=== PATIENT | female | born 1945 | race Caucasian/White ===

== ENCOUNTER 2017-01-18 06:35 | Inpatient (IN) ==
[2017-01-18] MEDS ORDERED: FUROSEMIDE 100 MG/10 ML VIAL IV STA (07:00)
[2017-01-18 07:16] LABS: Basophils # 0.1 10*3/uL (0.0-0.2); Basophils % 0.4 % (0.0-0.8); Eosinophils # 0.2 10*3/uL (0.0-0.87); Eosinophils % 1.3 % (0.00-10.9); Hematocrit 33.6 VOL% (35.7-47.0); Hemoglobin 11.2 GM/DL (12.0-16.0); Immature Granulocytes % 0.7 %; Immature Granulocytes Absolute 0.09 #; Lymphocytes # 1.6 10*3/uL (1.4-4.0); Lymphocytes % 12.2 % (21.3-54.2); Mean Corpuscular HGB Conc 33.3 GM/DL (32-36); Mean Corpuscular Hemoglobin 30 PG (27-34); Mean Corpuscular Volume 88.9 FL (87-102); Mean Platelet Volume 9.8 FL (9.6-12.0); Monocytes # 0.8 10*3/uL (0.11-0.8); Monocytes % 5.8 % (1.7-12.7); Neutrophils # 10.6 10*3/uL (1.4-7.4); Neutrophils % 79.6 % (38.7-73.9); Platelet Count 455 T/CUMM (130-400); Red Blood Count 3.78 MC/CUMM (3.8-5.5); Red Cell Distribution Width 14.8 % (9.3-17.3); White Blood Count 13.3 T/CUMM (4-12)
[2017-01-18] MEDS ORDERED: FUROSEMIDE 100 MG/10 ML VIAL ONE (07:43)
[2017-01-18 07:50] LABS: Amorphous Crystals,Urine Few /HPF (Few); Apearance,Urine CLOUDY (Clear); Bilirubin,Urine Negative (Negative); Blood, Urine Small mg/dL (Negative); Glucose,Urine (UA) Negative (Negative); Ketones,Urine 5 mg/dL (Negative); Mucus,Urine Occasional /LPF (Occasional); Nitrite,Urine Negative (Negative); Protein,Urine 30 MG/DL; Urine Color Yellow (Yellow); Urine Specific Gravity 1.025 (1.001-1.035)
[2017-01-18 07:53] LABS: Alanine Aminotransferase 29 U/L (13-56); Albumin 2.8 G/DL (3.4-5.0); Alkaline Phosphatase 157 U/L (45-117); Aspartate Amino Transferase 16 U/L (0-37); Blood Urea Nitrogen 16 MG/DL (7-18); Calcium 9.5 MG/DL (8.5-10.1); Glucose 114 MG/DL (74-106); Potassium 2.6 MMOL/L (3.5-5.1); Sodium 143 MMOL/L (136-145); Total Protein 7.1 G/DL (6.4-8.3); Troponin I Only < 0.015 NG/ML (0.00-0.045)
[2017-01-18] MEDS ORDERED: ENOXAPARIN 80 MG/0.8 ML SYRINGE SUBCUT STA (07:56)
[2017-01-18] MEDS ORDERED: POTASSIUM CHLORIDE 20 MEQ TABLET PO STA (08:04)
[2017-01-18] MEDS ORDERED: POTASSIUM CHLORIDE 20 MEQ TABLET PO ONE (08:25)
[2017-01-18] MEDS ORDERED: ENOXAPARIN 80 MG/0.8 ML SYRINGE SUBCUT ONE (08:26)
[2017-01-18] MEDS ORDERED: LACTULOSE 20 GM/30 ML UDCUP PO PRN (09:27)
[2017-01-18] MEDS ORDERED: MORPHINE 2 MG/1 ML SYRINGE IV PRN (09:27)
[2017-01-18] MEDS ORDERED: DOCUSATE SODIUM 100 MG CAPSULE PO PRN (09:27)
[2017-01-18] MEDS ORDERED: ONDANSETRON 4 MG/2 ML VIAL IV PRN (09:27)
[2017-01-18] MEDS ORDERED: ALBUTEROL/IPRATROPIUM 3 ML NEB RESP TX PRN (09:35)
[2017-01-18] MEDS ORDERED: ONDANSETRON 4 MG/2 ML VIAL ONE (10:20)
[2017-01-18] MEDS ORDERED: MORPHINE 2 MG/1 ML SYRINGE ONE (10:20)
[2017-01-18] MEDS ORDERED: METHOCARBAMOL 500 MG TABLET PO PRN (11:48)
[2017-01-18] MEDS ORDERED: LIDOCAINE 5% PATCH TRANSDERM PRN (11:48)
[2017-01-18] MEDS: POTASSIUM CHLORIDE 20 MEQ TABLET PO SCH ×2 (13:17→14:45)
[2017-01-18] MEDS: MULTIVITAMIN (CENTRUM) TABLET PO SCH (13:17)
[2017-01-18] MEDS: LEVOFLOXACIN INJ 750 MG in PREMIX 1 EACH IV SCH (13:18)
[2017-01-18] MEDS: PANTOPRAZOLE 40 MG TABLET PO SCH (13:18)
[2017-01-18] MEDS ORDERED: APIXABAN 5 MG TABLET PO SCH (20:00)
[2017-01-18] MEDS ORDERED: FUROSEMIDE 40 MG/4 ML VIAL IV SCH (21:00)
[2017-01-18] MEDS: APIXABAN 5 MG TABLET PO SCH ×2 (21:53→21:54)
[2017-01-18] MEDS: CALCIUM (CARBONATE) 500 MG TABLET PO SCH (21:53)
[2017-01-19 04:28] LABS: Basophils # 0.1 10*3/uL (0.0-0.2); Basophils % 0.6 % (0.0-0.8); Eosinophils # 0.1 10*3/uL (0.0-0.87); Eosinophils % 1.5 % (0.00-10.9); Hematocrit 26.8 VOL% (35.7-47.0); Immature Granulocytes % 0.6 %; Immature Granulocytes Absolute 0.05 #; Lymphocytes # 1.4 10*3/uL (1.4-4.0); Lymphocytes % 16.4 % (21.3-54.2); Mean Corpuscular HGB Conc 32.8 GM/DL (32-36); Mean Corpuscular Hemoglobin 30 PG (27-34); Mean Corpuscular Volume 90.5 FL (87-102); Mean Platelet Volume 9.8 FL (9.6-12.0); Monocytes # 0.7 10*3/uL (0.11-0.8); Monocytes % 7.9 % (1.7-12.7); Neutrophils # 6.4 10*3/uL (1.4-7.4); Red Cell Distribution Width 14.8 % (9.3-17.3)
[2017-01-19 05:04] LABS: Calcium 8.4 MG/DL (8.5-10.1); Osmolality,Calculated 284.8 MOS/KG (273-304); Potassium 4.4 MMOL/L (3.5-5.1)
[2017-01-19 05:10] LABS: White Blood Count 8.8 T/CUMM (4-12)
[2017-01-19 05:11] LABS: Hemoglobin 8.8 GM/DL (12.0-16.0); Platelet Count 350 T/CUMM (130-400); Red Blood Count 2.96 MC/CUMM (3.8-5.5)
[2017-01-19] MEDS ORDERED: POTASSIUM CHLORIDE 20 MEQ TABLET PO SCH (09:00)
[2017-01-19] MEDS ORDERED: FUROSEMIDE 40 MG/4 ML VIAL IV SCH (09:00)
[2017-01-19] MEDS ORDERED: DIAZEPAM 5 MG TABLET PO ONE (09:13)
[2017-01-19] MEDS: LEVOFLOXACIN INJ 750 MG in PREMIX 1 EACH IV SCH (09:19)
[2017-01-19] MEDS: PANTOPRAZOLE 40 MG TABLET PO SCH (09:40)
[2017-01-19] MEDS: CALCIUM (CARBONATE) 500 MG TABLET PO SCH (09:40)
[2017-01-19] MEDS: APIXABAN 5 MG TABLET PO SCH (09:40)
[2017-01-19] MEDS: MULTIVITAMIN (CENTRUM) TABLET PO SCH (09:40)
[2017-01-19 11:51] VITALS: BP 153/77
[2017-01-19] MEDS ORDERED: ZINC OXIDE PASTE 113 GM TUBE TOP PRN (15:30)
[2017-01-24] MEDS ORDERED: ERGOCALCIFEROL 50,000 UNIT CAPSULE PO SCH (09:00)
== END 2017-01-19 16:00 | disposition home health service (06) | DRG 253 ==
LOC: N.ED 06:35 → N.EDINP 09:49 → N.3E 10:32
PROVIDERS: ADMIT Internal Medicine; ATTEND Internal Medicine

== ENCOUNTER 2018-01-04 08:11 | Observation (INO) ==
[2018-01-04] MEDS ORDERED: ASPIRIN 325 MG TABLET PO STA (08:38)
[2018-01-04 08:45] LABS: Basophils # 0.1 10*3/uL (0.0-0.2); Basophils % 0.7 % (0.0-0.8); Eosinophils # 0.1 10*3/uL (0.0-0.87); Eosinophils % 1.5 % (0.00-10.9); Hematocrit 37.1 VOL% (35.7-47.0); Hemoglobin 12.3 GM/DL (12.0-16.0); Immature Granulocytes % 0.2 %; Immature Granulocytes Absolute 0.02 #; Lymphocytes # 1.8 10*3/uL (1.4-4.0); Mean Corpuscular HGB Conc 33.2 GM/DL (32-36); Mean Corpuscular Hemoglobin 30 PG (27-34); Mean Corpuscular Volume 91.4 FL (87-102); Mean Platelet Volume 11.5 FL (9.6-12.0); Monocytes # 0.5 10*3/uL (0.11-0.8); Monocytes % 5.5 % (1.7-12.7); Neutrophils # 5.7 10*3/uL (1.4-7.4); Neutrophils % 70.1 % (38.7-73.9); Platelet Count 309 T/CUMM (130-400); Red Blood Count 4.06 MC/CUMM (3.8-5.5); Red Cell Distribution Width 14.5 % (9.3-17.3); White Blood Count 8.2 T/CUMM (4-12)
[2018-01-04 09:32] LABS: Bilirubin,Total 0.8 MG/DL (0.2-1.0); Calcium 9.5 MG/DL (8.5-10.1); Osmolality,Calculated 286.1 MOS/KG (273-304); Potassium 3.7 MMOL/L (3.5-5.1); Total Protein 7.4 G/DL (6.4-8.3)
[2018-01-04] MEDS ORDERED: ONDANSETRON 4 MG/2 ML VIAL IV PRN (11:01)
[2018-01-04] MEDS ORDERED: ACETAMINOPHEN 325 MG TABLET PO PRN (11:01)
[2018-01-04 13:06] LABS: Apearance,Urine CLEAR (Clear); Bilirubin,Urine Negative (Negative); Blood, Urine Negative (Negative); Glucose,Urine (UA) Negative (Negative); Ketones,Urine Negative (Negative); Nitrite,Urine Negative (Negative); Protein,Urine Negative; RBC,Urine <1 /HPF (0-4); Urine Color Colorless (Yellow); Urine Specific Gravity 1.005 (1.001-1.035); Urine Urobilinogen < 2.0 EU/DL (0.2-1.0); WBC,Urine <1 /HPF (0-6)
[2018-01-04] MEDS: CHOLECALCIFEROL 1,000 UNIT TABLET PO SCH (14:44)
[2018-01-04] MEDS: CARBIDOPA/LEVODOPA 25-100 MG TABLET PO SCH (16:28)
[2018-01-04] MEDS ORDERED: OXYMETAZOLINE 0.05% NASAL SPRAY 15 ML BOTTLE BOTH NARES PRN (16:33)
[2018-01-04] MEDS ORDERED: APIXABAN 5 MG TABLET PO SCH (21:00)
[2018-01-04] MEDS: POTASSIUM CHLORIDE 10 MEQ TABLET PO SCH (21:07)
[2018-01-04] MEDS: CARVEDILOL 3.125 MG TABLET PO SCH (21:07)
[2018-01-04] MEDS: DOCUSATE SODIUM 100 MG CAPSULE PO SCH (21:07)
[2018-01-05] MEDS: CHOLECALCIFEROL 1,000 UNIT TABLET PO SCH (10:04)
[2018-01-05] MEDS: PANTOPRAZOLE 40 MG TABLET PO SCH (10:04)
[2018-01-05] MEDS: CARVEDILOL 3.125 MG TABLET PO SCH ×2 (10:05→20:39)
[2018-01-05] MEDS: FUROSEMIDE 40 MG TABLET PO SCH (10:05)
[2018-01-05] MEDS: DOCUSATE SODIUM 100 MG CAPSULE PO SCH ×2 (10:05→20:39)
[2018-01-05] MEDS: POTASSIUM CHLORIDE 10 MEQ TABLET PO SCH ×2 (10:05→20:39)
[2018-01-05] MEDS: CYANOCOBALAMIN 500 MCG TABLET PO SCH (10:05)
[2018-01-05] MEDS: CARBIDOPA/LEVODOPA 25-100 MG TABLET PO SCH ×3 (10:05→17:06)
[2018-01-05] MEDS ORDERED: ZINC OXIDE PASTE 113 GM TUBE TOP PRN (14:41)
[2018-01-05] MEDS ORDERED: BISACODYL 10 MG SUPP RECTAL ONE (18:37)
[2018-01-06] MEDS ORDERED: LIDOCAINE 100 MG/5 ML SYRINGE ONE (12:43)
[2018-01-06] MEDS ORDERED: PROPOFOL 200 MG/20 ML VIAL IV ONE (12:43)
[2018-01-06] MEDS: CARBIDOPA/LEVODOPA 25-100 MG TABLET PO SCH ×3 (14:30→16:11)
[2018-01-06] MEDS: CHOLECALCIFEROL 1,000 UNIT TABLET PO SCH (14:30)
[2018-01-06] MEDS: ISOSORBIDE MONONITRATE 30 MG TABLET PO SCH (14:30)
[2018-01-06] MEDS: CYANOCOBALAMIN 500 MCG TABLET PO SCH (14:31)
[2018-01-06] MEDS: POTASSIUM CHLORIDE 10 MEQ TABLET PO SCH ×2 (14:31→20:36)
[2018-01-06] MEDS: PANTOPRAZOLE 40 MG TABLET PO SCH (14:31)
[2018-01-06] MEDS: FUROSEMIDE 40 MG TABLET PO SCH (14:31)
[2018-01-06] MEDS: DOCUSATE SODIUM 100 MG CAPSULE PO SCH ×2 (14:32→20:36)
[2018-01-06] MEDS: CARVEDILOL 3.125 MG TABLET PO SCH ×2 (14:32→20:36)
[2018-01-07 05:37] LABS: Basophils % 0.6 % (0.0-0.8); Eosinophils # 0.3 10*3/uL (0.0-0.87); Eosinophils % 4.7 % (0.00-10.9); Hematocrit 32.3 VOL% (35.7-47.0); Hemoglobin 10.3 GM/DL (12.0-16.0); Immature Granulocytes % 1.2 %; Immature Granulocytes Absolute 0.08 #; Lymphocytes # 1.6 10*3/uL (1.4-4.0); Lymphocytes % 23.5 % (21.3-54.2); Mean Corpuscular HGB Conc 31.9 GM/DL (32-36); Mean Corpuscular Hemoglobin 30 PG (27-34); Mean Corpuscular Volume 93.1 FL (87-102); Mean Platelet Volume 11.7 FL (9.6-12.0); Monocytes # 0.6 10*3/uL (0.11-0.8); Monocytes % 8.3 % (1.7-12.7); Neutrophils # 4.2 10*3/uL (1.4-7.4); Neutrophils % 61.7 % (38.7-73.9); Platelet Count 228 T/CUMM (130-400); Red Blood Count 3.47 MC/CUMM (3.8-5.5); Red Cell Distribution Width 14.7 % (9.3-17.3); White Blood Count 6.9 T/CUMM (4-12)
[2018-01-07 05:52] LABS: Calcium 8.7 MG/DL (8.5-10.1); Osmolality,Calculated 284.1 MOS/KG (273-304); Potassium 4.2 MMOL/L (3.5-5.1)
[2018-01-07] MEDS: POTASSIUM CHLORIDE 10 MEQ TABLET PO SCH ×2 (09:13→20:55)
[2018-01-07] MEDS: FUROSEMIDE 40 MG TABLET PO SCH (09:13)
[2018-01-07] MEDS: CYANOCOBALAMIN 500 MCG TABLET PO SCH (09:13)
[2018-01-07] MEDS: PANTOPRAZOLE 40 MG TABLET PO SCH (09:13)
[2018-01-07] MEDS: CARBIDOPA/LEVODOPA 25-100 MG TABLET PO SCH ×3 (09:13→16:52)
[2018-01-07] MEDS: CHOLECALCIFEROL 1,000 UNIT TABLET PO SCH (09:13)
[2018-01-07] MEDS: DOCUSATE SODIUM 100 MG CAPSULE PO SCH ×2 (09:14→20:55)
[2018-01-07] MEDS: CARVEDILOL 3.125 MG TABLET PO SCH ×2 (09:14→20:55)
[2018-01-07] MEDS: ISOSORBIDE MONONITRATE 30 MG TABLET PO SCH (09:14)
[2018-01-08 06:34] LABS: Basophils # 0.1 10*3/uL (0.0-0.2); Basophils % 0.7 % (0.0-0.8); Eosinophils # 0.3 10*3/uL (0.0-0.87); Eosinophils % 3.8 % (0.00-10.9); Hematocrit 31.5 VOL% (35.7-47.0); Hemoglobin 10.1 GM/DL (12.0-16.0); Immature Granulocytes % 0.4 %; Immature Granulocytes Absolute 0.03 #; Lymphocytes # 1.3 10*3/uL (1.4-4.0); Lymphocytes % 18.3 % (21.3-54.2); Mean Corpuscular HGB Conc 32.1 GM/DL (32-36); Mean Corpuscular Hemoglobin 30 PG (27-34); Mean Corpuscular Volume 93.8 FL (87-102); Mean Platelet Volume 11.6 FL (9.6-12.0); Monocytes # 0.5 10*3/uL (0.11-0.8); Monocytes % 6.8 % (1.7-12.7); Neutrophils # 4.9 10*3/uL (1.4-7.4); Platelet Count 231 T/CUMM (130-400); Red Blood Count 3.36 MC/CUMM (3.8-5.5); Red Cell Distribution Width 14.9 % (9.3-17.3)
[2018-01-08 07:00] LABS: Calcium 7.6 MG/DL (8.5-10.1); Osmolality,Calculated 292.7 MOS/KG (273-304); Potassium 4.1 MMOL/L (3.5-5.1)
[2018-01-08] MEDS: DOCUSATE SODIUM 100 MG CAPSULE PO SCH ×2 (08:50→20:53)
[2018-01-08] MEDS: CYANOCOBALAMIN 500 MCG TABLET PO SCH (08:51)
[2018-01-08] MEDS: PANTOPRAZOLE 40 MG TABLET PO SCH (08:51)
[2018-01-08] MEDS: ISOSORBIDE MONONITRATE 30 MG TABLET PO SCH (08:51)
[2018-01-08] MEDS: POTASSIUM CHLORIDE 10 MEQ TABLET PO SCH ×2 (08:51→20:53)
[2018-01-08] MEDS: FUROSEMIDE 40 MG TABLET PO SCH (08:51)
[2018-01-08] MEDS: CHOLECALCIFEROL 1,000 UNIT TABLET PO SCH (08:51)
[2018-01-08] MEDS: CARVEDILOL 3.125 MG TABLET PO SCH ×2 (08:52→20:53)
[2018-01-08] MEDS: CARBIDOPA/LEVODOPA 25-100 MG TABLET PO SCH ×3 (08:52→18:48)
[2018-01-09 06:01] LABS: Calcium 8.9 MG/DL (8.5-10.1); Osmolality,Calculated 283.4 MOS/KG (273-304); Potassium 4.1 MMOL/L (3.5-5.1)
[2018-01-09 06:22] LABS: Basophils % 0.4 % (0.0-0.8); Eosinophils # 0.2 10*3/uL (0.0-0.87); Eosinophils % 3.4 % (0.00-10.9); Hematocrit 32.8 VOL% (35.7-47.0); Hemoglobin 10.6 GM/DL (12.0-16.0); Immature Granulocytes % 0.4 %; Immature Granulocytes Absolute 0.03 #; Lymphocytes # 1.5 10*3/uL (1.4-4.0); Lymphocytes % 21.9 % (21.3-54.2); Mean Corpuscular HGB Conc 32.3 GM/DL (32-36); Mean Corpuscular Hemoglobin 31 PG (27-34); Mean Corpuscular Volume 94.3 FL (87-102); Mean Platelet Volume 11.7 FL (9.6-12.0); Monocytes # 0.6 10*3/uL (0.11-0.8); Monocytes % 8.1 % (1.7-12.7); Neutrophils # 4.6 10*3/uL (1.4-7.4); Neutrophils % 65.8 % (38.7-73.9); Platelet Count 229 T/CUMM (130-400); Red Blood Count 3.48 MC/CUMM (3.8-5.5); Red Cell Distribution Width 14.7 % (9.3-17.3)
[2018-01-09] MEDS: POTASSIUM CHLORIDE 10 MEQ TABLET PO SCH (09:34)
[2018-01-09] MEDS: FUROSEMIDE 40 MG TABLET PO SCH (09:34)
[2018-01-09] MEDS: PANTOPRAZOLE 40 MG TABLET PO SCH (09:34)
[2018-01-09] MEDS: ISOSORBIDE MONONITRATE 30 MG TABLET PO SCH (09:34)
[2018-01-09] MEDS: CYANOCOBALAMIN 500 MCG TABLET PO SCH (09:34)
[2018-01-09] MEDS: CHOLECALCIFEROL 1,000 UNIT TABLET PO SCH (09:34)
[2018-01-09] MEDS: CARVEDILOL 3.125 MG TABLET PO SCH (09:35)
[2018-01-09] MEDS: CARBIDOPA/LEVODOPA 25-100 MG TABLET PO SCH ×2 (09:35→14:42)
[2018-01-09] MEDS: DOCUSATE SODIUM 100 MG CAPSULE PO SCH (09:35)
[2018-01-09 12:34] VITALS: BP 94/64
[2018-01-09] MEDS ORDERED: PNEUMOCOCCAL VACCINE (13 VALENT) 0.5 ML SYRINGE IM ONE (15:00)
== END 2018-01-09 15:23 | disposition home health service (06) ==
LOC: EDBD → EDUNIT# → N.ED 08:11 → N.EDINP 08:11 → N.2W 12:16 → N.TELEN 12:53
PROVIDERS: ADMIT Family Medicine; ATTEND Family Medicine

== ENCOUNTER 2018-01-15 17:05 | Observation (INO) ==
[2018-01-15] MEDS ORDERED: ALUM/MAG/SIMETH/LIDO VISC 1:1 30 ML BOTTLE PO STA (17:55)
[2018-01-15] MEDS ORDERED: NITROGLYCERIN 2% OINT 1 INCH/GM PACK TOP STA (17:55)
[2018-01-15] MEDS ORDERED: ASPIRIN 325 MG TABLET PO STA (17:55)
[2018-01-15] MEDS ORDERED: ONDANSETRON 4 MG/2 ML VIAL IV STA (17:55)
[2018-01-15] MEDS ORDERED: MORPHINE 4 MG/1 ML VIAL IV STA (17:55)
[2018-01-15 18:34] LABS: Basophils # 0.1 10*3/uL (0.0-0.2); Basophils % 0.9 % (0.0-0.8); Eosinophils # 0.2 10*3/uL (0.0-0.87); Eosinophils % 3.6 % (0.00-10.9); Hematocrit 36.7 VOL% (35.7-47.0); Hemoglobin 11.7 GM/DL (12.0-16.0); Immature Granulocytes % 0.3 %; Immature Granulocytes Absolute 0.02 #; Lymphocytes # 1.8 10*3/uL (1.4-4.0); Lymphocytes % 26.7 % (21.3-54.2); Mean Corpuscular HGB Conc 31.9 GM/DL (32-36); Mean Corpuscular Hemoglobin 29 PG (27-34); Mean Corpuscular Volume 90.8 FL (87-102); Monocytes # 0.5 10*3/uL (0.11-0.8); Monocytes % 7.6 % (1.7-12.7); Neutrophils % 60.9 % (38.7-73.9); Platelet Count 377 T/CUMM (130-400); Red Blood Count 4.04 MC/CUMM (3.8-5.5); Red Cell Distribution Width 14.6 % (9.3-17.3); White Blood Count 6.6 T/CUMM (4-12)
[2018-01-15 18:36] LABS: Apearance,Urine CLEAR (Clear); Bilirubin,Urine Negative (Negative); Blood, Urine Negative (Negative); Glucose,Urine (UA) Negative (Negative); Ketones,Urine 5 mg/dL (Negative); Mucus,Urine Few /LPF (Occasional); Nitrite,Urine Negative (Negative); Protein,Urine Negative; RBC,Urine 2 /HPF (0-4); Squamous Epithelial Cell,Urine Occasional /HPF (0-10); Urine Color Yellow (Yellow); Urine Specific Gravity 1.017 (1.001-1.035); WBC,Urine 3 /HPF (0-6)
[2018-01-15 18:58] LABS: INR 1.1; PT Patient Result 11.1 SECS
[2018-01-15 19:00] LABS: Albumin 3.8 G/DL (3.4-5.0); Bilirubin,Total 0.7 MG/DL (0.2-1.0); Calcium 9.3 MG/DL (8.5-10.1); Potassium 3.5 MMOL/L (3.5-5.1); Total Protein 7.4 G/DL (6.4-8.3)
[2018-01-15] MEDS ORDERED: MORPHINE 4 MG/1 ML VIAL IV PRN (19:38)
[2018-01-15] MEDS ORDERED: DEXTROSE 50% 25 GM/50 ML VIAL IV PRN (19:38)
[2018-01-15] MEDS ORDERED: ACETAMINOPHEN 325 MG TABLET PO PRN (19:38)
[2018-01-15] MEDS ORDERED: ONDANSETRON 4 MG/2 ML VIAL IV PRN (19:38)
[2018-01-15] MEDS ORDERED: ALBUTEROL/IPRATROPIUM 3 ML NEB RESP TX PRN (19:38)
[2018-01-15] MEDS ORDERED: GLUCAGON 1 MG VIAL IM PRN (19:38)
[2018-01-15] MEDS: DOCUSATE SODIUM 100 MG CAPSULE PO SCH ×2 (21:28→21:32)
[2018-01-15] MEDS: METOCLOPRAMIDE 10 MG/10 ML UDCUP PO SCH (21:28)
[2018-01-15] MEDS: POTASSIUM CHLORIDE 10 MEQ TABLET PO SCH (21:28)
[2018-01-15] MEDS: CALCIUM (CARBONATE) 500 MG TABLET PO SCH (21:28)
[2018-01-15] MEDS: CARVEDILOL 3.125 MG TABLET PO SCH (21:28)
[2018-01-15] MEDS: FERROUS SULFATE 325 MG TABLET PO SCH (21:29)
[2018-01-15] MEDS: SODIUM CHLORIDE 0.9% 1,000 ML IV SCH (21:29)
[2018-01-15] MEDS: AMOXICILLIN 50 MG/ML 150 ML/BOTTLE PO SCH (21:29)
[2018-01-15] MEDS: APIXABAN 5 MG TABLET PO SCH (21:30)
[2018-01-15] MEDS: INSULIN REGULAR 100 UNIT/ML SUBCUT SCH (21:31)
[2018-01-16 01:12] LABS: Basophils # 0.1 10*3/uL (0.0-0.2); Eosinophils # 0.2 10*3/uL (0.0-0.87); Eosinophils % 3.8 % (0.00-10.9); Hemoglobin 10.2 GM/DL (12.0-16.0); Immature Granulocytes % 0.8 %; Immature Granulocytes Absolute 0.05 #; Mean Corpuscular HGB Conc 31.9 GM/DL (32-36); Mean Corpuscular Hemoglobin 29 PG (27-34); Mean Corpuscular Volume 91.2 FL (87-102); Mean Platelet Volume 11.3 FL (9.6-12.0); Monocytes # 0.5 10*3/uL (0.11-0.8); Monocytes % 8.5 % (1.7-12.7); Neutrophils # 3.3 10*3/uL (1.4-7.4); Neutrophils % 53.9 % (38.7-73.9); Platelet Count 330 T/CUMM (130-400); Red Blood Count 3.51 MC/CUMM (3.8-5.5); Red Cell Distribution Width 14.9 % (9.3-17.3); White Blood Count 6.1 T/CUMM (4-12)
[2018-01-16 01:23] LABS: Albumin 3.4 G/DL (3.4-5.0); Bilirubin,Total 0.6 MG/DL (0.2-1.0); Calcium 8.9 MG/DL (8.5-10.1); Potassium 3.6 MMOL/L (3.5-5.1); Risk Ratio 3.73; Total Protein 6.6 G/DL (6.4-8.3); VLDL CHOLESTEROL 11.8 MG/DL
[2018-01-16] MEDS: NITROGLYCERIN 2% OINT 1 INCH/GM PACK TOP SCH ×4 (02:31→17:57)
[2018-01-16] MEDS: AMOXICILLIN 50 MG/ML 150 ML/BOTTLE PO SCH ×3 (06:45→23:36)
[2018-01-16] MEDS: INSULIN REGULAR 100 UNIT/ML SUBCUT SCH ×4 (08:11→21:14)
[2018-01-16] MEDS ORDERED: PANTOPRAZOLE 40 MG TABLET PO SCH (09:00)
[2018-01-16] MEDS ORDERED: REGADENOSON 0.4 MG/5 ML SYRINGE IV ONE (09:54)
[2018-01-16] MEDS: CYANOCOBALAMIN 500 MCG TABLET PO SCH (10:39)
[2018-01-16] MEDS: FUROSEMIDE 40 MG TABLET PO SCH (10:40)
[2018-01-16] MEDS: CHOLECALCIFEROL 1,000 UNIT TABLET PO SCH (10:40)
[2018-01-16] MEDS: APIXABAN 5 MG TABLET PO SCH ×2 (10:40→21:14)
[2018-01-16] MEDS: POTASSIUM CHLORIDE 10 MEQ TABLET PO SCH ×2 (10:41→21:14)
[2018-01-16] MEDS: CARVEDILOL 3.125 MG TABLET PO SCH ×2 (10:41→21:14)
[2018-01-16] MEDS: ISOSORBIDE MONONITRATE 30 MG TABLET PO SCH (10:41)
[2018-01-16] MEDS: DOCUSATE SODIUM 100 MG CAPSULE PO SCH ×2 (10:41→21:14)
[2018-01-16] MEDS: PANTOPRAZOLE 40 MG TABLET PO SCH (10:41)
[2018-01-16] MEDS: CARBIDOPA/LEVODOPA 25-100 MG TABLET PO SCH ×3 (10:42→16:12)
[2018-01-16] MEDS: ASPIRIN EC 81 MG TABLET PO SCH (10:42)
[2018-01-16] MEDS: FERROUS SULFATE 325 MG TABLET PO SCH ×2 (10:42→21:13)
[2018-01-16] MEDS: METOCLOPRAMIDE 10 MG/10 ML UDCUP PO SCH ×4 (10:42→21:13)
[2018-01-16] MEDS: CALCIUM (CARBONATE) 500 MG TABLET PO SCH ×2 (10:42→21:13)
[2018-01-16] MEDS: SODIUM CHLORIDE 0.9% 1,000 ML IV SCH (21:14)
[2018-01-17] MEDS: NITROGLYCERIN 2% OINT 1 INCH/GM PACK TOP SCH ×3 (00:08→11:57)
[2018-01-17 04:12] LABS: Basophils # 0.1 10*3/uL (0.0-0.2); Basophils % 1.3 % (0.0-0.8); Eosinophils # 0.2 10*3/uL (0.0-0.87); Eosinophils % 3.7 % (0.00-10.9); Immature Granulocytes % 0.3 %; Immature Granulocytes Absolute 0.02 #; Lymphocytes # 1.9 10*3/uL (1.4-4.0); Lymphocytes % 32.5 % (21.3-54.2); Mean Corpuscular HGB Conc 31.3 GM/DL (32-36); Mean Corpuscular Hemoglobin 29 PG (27-34); Mean Corpuscular Volume 92.5 FL (87-102); Mean Platelet Volume 11.5 FL (9.6-12.0); Monocytes # 0.3 10*3/uL (0.11-0.8); Monocytes % 5.7 % (1.7-12.7); Neutrophils # 3.3 10*3/uL (1.4-7.4); Neutrophils % 56.5 % (38.7-73.9); Platelet Count 307 T/CUMM (130-400); Red Blood Count 3.46 MC/CUMM (3.8-5.5); White Blood Count 5.9 T/CUMM (4-12)
[2018-01-17 04:37] LABS: Calcium 8.5 MG/DL (8.5-10.1); Osmolality,Calculated 286.8 MOS/KG (273-304)
[2018-01-17] MEDS: AMOXICILLIN 50 MG/ML 150 ML/BOTTLE PO SCH ×2 (06:00→13:49)
[2018-01-17] MEDS: SODIUM CHLORIDE 0.9% 1,000 ML IV SCH (07:04)
[2018-01-17] MEDS: INSULIN REGULAR 100 UNIT/ML SUBCUT SCH ×2 (07:58→11:57)
[2018-01-17] MEDS: CHOLECALCIFEROL 1,000 UNIT TABLET PO SCH (07:59)
[2018-01-17] MEDS: METOCLOPRAMIDE 10 MG/10 ML UDCUP PO SCH ×2 (07:59→11:58)
[2018-01-17] MEDS: CALCIUM (CARBONATE) 500 MG TABLET PO SCH (08:00)
[2018-01-17] MEDS: POTASSIUM CHLORIDE 10 MEQ TABLET PO SCH (08:00)
[2018-01-17] MEDS: CARBIDOPA/LEVODOPA 25-100 MG TABLET PO SCH ×2 (08:00→13:48)
[2018-01-17] MEDS: ASPIRIN EC 81 MG TABLET PO SCH (08:00)
[2018-01-17] MEDS: FERROUS SULFATE 325 MG TABLET PO SCH (08:00)
[2018-01-17] MEDS: FUROSEMIDE 40 MG TABLET PO SCH (08:00)
[2018-01-17] MEDS: PANTOPRAZOLE 40 MG TABLET PO SCH (08:00)
[2018-01-17] MEDS: ISOSORBIDE MONONITRATE 30 MG TABLET PO SCH (08:00)
[2018-01-17] MEDS: APIXABAN 5 MG TABLET PO SCH (08:01)
[2018-01-17] MEDS: CARVEDILOL 3.125 MG TABLET PO SCH (08:01)
[2018-01-17] MEDS: CYANOCOBALAMIN 500 MCG TABLET PO SCH (08:01)
[2018-01-17] MEDS: DOCUSATE SODIUM 100 MG CAPSULE PO SCH (08:02)
[2018-01-17 12:09] VITALS: BP 106/55
== END 2018-01-17 15:00 | disposition home or self-care (01) ==
LOC: EDUNIT# → EDBD → N.ED 17:05 → N.EDINP 17:05 → N.TELES 19:26
PROVIDERS: ADMIT Family Medicine; ATTEND Family Medicine

== ENCOUNTER 2018-02-01 15:38 | Observation (INO) ==
[2018-02-01] MEDS ORDERED: ONDANSETRON 4 MG/2 ML VIAL IV STA (16:07)
[2018-02-01] MEDS ORDERED: ALUM/MAG/SIMETH/LIDO VISC 1:1 30 ML BOTTLE PO STA (16:07)
[2018-02-01] MEDS ORDERED: NITROGLYCERIN 2% OINT 1 INCH/GM PACK TOP STA (16:07)
[2018-02-01] MEDS ORDERED: ASPIRIN 325 MG TABLET PO STA (16:07)
[2018-02-01] MEDS ORDERED: MORPHINE 4 MG/1 ML VIAL IV STA (16:07)
[2018-02-01 16:42] LABS: Basophils # 0.1 10*3/uL (0.0-0.2); Basophils % 1.2 % (0.0-0.8); Eosinophils # 0.4 10*3/uL (0.0-0.87); Eosinophils % 5.2 % (0.00-10.9); Hematocrit 37.3 VOL% (35.7-47.0); Immature Granulocytes % 0.3 %; Immature Granulocytes Absolute 0.02 #; Lymphocytes # 1.8 10*3/uL (1.4-4.0); Lymphocytes % 25.8 % (21.3-54.2); Mean Corpuscular HGB Conc 32.2 GM/DL (32-36); Mean Corpuscular Hemoglobin 30 PG (27-34); Mean Corpuscular Volume 91.6 FL (87-102); Mean Platelet Volume 10.6 FL (9.6-12.0); Monocytes # 0.6 10*3/uL (0.11-0.8); Monocytes % 8.3 % (1.7-12.7); Neutrophils # 4.1 10*3/uL (1.4-7.4); Neutrophils % 59.2 % (38.7-73.9); Platelet Count 338 T/CUMM (130-400); Red Blood Count 4.07 MC/CUMM (3.8-5.5); Red Cell Distribution Width 14.5 % (9.3-17.3); White Blood Count 6.9 T/CUMM (4-12)
[2018-02-01 16:52] LABS: INR 1.1; PT Patient Result 11.4 SECS
[2018-02-01 16:55] LABS: Apearance,Urine Slightly Hazy (Clear); Bilirubin,Urine Small mg/dL (Negative); Blood, Urine Negative (Negative); Glucose,Urine (UA) Negative (Negative); Ketones,Urine 5 mg/dL (Negative); Mucus,Urine Many /LPF (Occasional); Nitrite,Urine Negative (Negative); Protein,Urine Negative; RBC,Urine 2 /HPF (0-4); Urine Color Yellow (Yellow); Urine Specific Gravity 1.029 (1.001-1.035); WBC,Urine 1 /HPF (0-6)
[2018-02-01 17:06] LABS: Bilirubin,Total 0.8 MG/DL (0.2-1.0); Calcium 9.1 MG/DL (8.5-10.1); Osmolality,Calculated 282.3 MOS/KG (273-304); Potassium 3.3 MMOL/L (3.5-5.1); Total Protein 7.6 G/DL (6.4-8.3)
[2018-02-01] MEDS ORDERED: MORPHINE 4 MG/1 ML VIAL IV PRN (20:25)
[2018-02-01] MEDS ORDERED: ACETAMINOPHEN 325 MG TABLET PO PRN (20:25)
[2018-02-01] MEDS ORDERED: ONDANSETRON 4 MG/2 ML VIAL IV PRN (20:25)
[2018-02-01] MEDS: METOCLOPRAMIDE 10 MG/10 ML UDCUP PO SCH (21:36)
[2018-02-01] MEDS: APIXABAN 5 MG TABLET PO SCH (21:36)
[2018-02-01] MEDS: POTASSIUM CHLORIDE 10 MEQ TABLET PO SCH (21:36)
[2018-02-01] MEDS: FERROUS SULFATE 325 MG TABLET PO SCH (21:36)
[2018-02-01] MEDS: DOCUSATE SODIUM 100 MG CAPSULE PO SCH (21:36)
[2018-02-01] MEDS: SODIUM CHLORIDE 0.9% 1,000 ML IV SCH (21:37)
[2018-02-01] MEDS: CALCIUM (CARBONATE) 500 MG TABLET PO SCH (21:37)
[2018-02-01] MEDS: CARVEDILOL 3.125 MG TABLET PO SCH (21:37)
[2018-02-01 21:45] LABS: Troponin I < 0.015 NG/ML (0.00-0.045)
[2018-02-01] MEDS ORDERED: POTASSIUM CHLORIDE 20 MEQ TABLET PO PRN (22:24)
[2018-02-02] MEDS: NITROGLYCERIN 2% OINT 1 INCH/GM PACK TOP SCH ×2 (02:16→05:57)
[2018-02-02 04:33] LABS: Basophils # 0.1 10*3/uL (0.0-0.2); Basophils % 1.4 % (0.0-0.8); Eosinophils # 0.4 10*3/uL (0.0-0.87); Eosinophils % 7.3 % (0.00-10.9); Hematocrit 31.3 VOL% (35.7-47.0); Hemoglobin 9.8 GM/DL (12.0-16.0); Immature Granulocytes % 0.2 %; Immature Granulocytes Absolute 0.01 #; Lymphocytes # 1.7 10*3/uL (1.4-4.0); Lymphocytes % 34.1 % (21.3-54.2); Mean Corpuscular HGB Conc 31.3 GM/DL (32-36); Mean Corpuscular Hemoglobin 29 PG (27-34); Mean Corpuscular Volume 93.7 FL (87-102); Mean Platelet Volume 11.5 FL (9.6-12.0); Monocytes # 0.5 10*3/uL (0.11-0.8); Monocytes % 9.1 % (1.7-12.7); Neutrophils # 2.4 10*3/uL (1.4-7.4); Neutrophils % 47.9 % (38.7-73.9); Platelet Count 255 T/CUMM (130-400); Red Blood Count 3.34 MC/CUMM (3.8-5.5); Red Cell Distribution Width 14.6 % (9.3-17.3); White Blood Count 5.1 T/CUMM (4-12)
[2018-02-02 04:56] LABS: Albumin 3.3 G/DL (3.4-5.0); Bilirubin,Total 0.7 MG/DL (0.2-1.0); Calcium 8.7 MG/DL (8.5-10.1); Osmolality,Calculated 288.7 MOS/KG (273-304); Potassium 3.5 MMOL/L (3.5-5.1); Risk Ratio 3.6; Total Protein 6.2 G/DL (6.4-8.3)
[2018-02-02] MEDS: METOCLOPRAMIDE 10 MG/10 ML UDCUP PO SCH ×4 (08:51→22:43)
[2018-02-02] MEDS: ISOSORBIDE MONONITRATE 30 MG TABLET PO SCH (08:52)
[2018-02-02] MEDS: FERROUS SULFATE 325 MG TABLET PO SCH ×2 (08:52→22:46)
[2018-02-02] MEDS: APIXABAN 5 MG TABLET PO SCH ×2 (08:52→22:46)
[2018-02-02] MEDS: FUROSEMIDE 40 MG TABLET PO SCH (08:52)
[2018-02-02] MEDS: POTASSIUM CHLORIDE 10 MEQ TABLET PO SCH ×2 (08:52→22:45)
[2018-02-02] MEDS: CARVEDILOL 3.125 MG TABLET PO SCH ×2 (08:52→17:03)
[2018-02-02] MEDS: PANTOPRAZOLE 40 MG TABLET PO SCH (08:52)
[2018-02-02] MEDS: CYANOCOBALAMIN 500 MCG TABLET PO SCH (08:52)
[2018-02-02] MEDS: CARBIDOPA/LEVODOPA 25-100 MG TABLET PO SCH ×3 (08:52→17:03)
[2018-02-02] MEDS: CHOLECALCIFEROL 1,000 UNIT TABLET PO SCH (08:52)
[2018-02-02] MEDS: DOCUSATE SODIUM 100 MG CAPSULE PO SCH ×2 (08:52→22:43)
[2018-02-02] MEDS: ASPIRIN EC 81 MG TABLET PO SCH (08:53)
[2018-02-02] MEDS: CALCIUM (CARBONATE) 500 MG TABLET PO SCH ×2 (08:53→22:45)
[2018-02-02] MEDS ORDERED: PANTOPRAZOLE 40 MG TABLET PO SCH (09:00)
[2018-02-02] MEDS ORDERED: ASPIRIN EC 81 MG TABLET PO SCH (09:00)
[2018-02-02] MEDS ORDERED: OXYMETAZOLINE 0.05% NASAL SPRAY 15 ML BOTTLE BOTH NARES PRN (10:01)
[2018-02-02 14:03] LABS: Hematocrit 35.7 VOL% (35.7-47.0); Hemoglobin 11.1 GM/DL (12.0-16.0)
[2018-02-02] MEDS: SODIUM CHLORIDE 0.9% 1,000 ML IV SCH (22:47)
[2018-02-03 06:01] LABS: Basophils # 0.1 10*3/uL (0.0-0.2); Basophils % 0.9 % (0.0-0.8); Eosinophils # 0.4 10*3/uL (0.0-0.87); Eosinophils % 6.3 % (0.00-10.9); Hematocrit 31.5 VOL% (35.7-47.0); Hemoglobin 9.8 GM/DL (12.0-16.0); Immature Granulocytes % 0.3 %; Immature Granulocytes Absolute 0.02 #; Lymphocytes # 1.9 10*3/uL (1.4-4.0); Lymphocytes % 30.4 % (21.3-54.2); Mean Corpuscular HGB Conc 31.1 GM/DL (32-36); Mean Corpuscular Hemoglobin 30 PG (27-34); Mean Corpuscular Volume 94.9 FL (87-102); Mean Platelet Volume 11.6 FL (9.6-12.0); Monocytes # 0.5 10*3/uL (0.11-0.8); Monocytes % 7.5 % (1.7-12.7); Neutrophils # 3.5 10*3/uL (1.4-7.4); Neutrophils % 54.6 % (38.7-73.9); Platelet Count 237 T/CUMM (130-400); Red Blood Count 3.32 MC/CUMM (3.8-5.5); Red Cell Distribution Width 14.6 % (9.3-17.3); White Blood Count 6.4 T/CUMM (4-12)
[2018-02-03 06:02] LABS: Calcium 8.5 MG/DL (8.5-10.1); Osmolality,Calculated 290.6 MOS/KG (273-304); Potassium 4.1 MMOL/L (3.5-5.1)
[2018-02-03] MEDS: CARVEDILOL 3.125 MG TABLET PO SCH (09:07)
[2018-02-03] MEDS: CHOLECALCIFEROL 1,000 UNIT TABLET PO SCH (09:07)
[2018-02-03] MEDS: CYANOCOBALAMIN 500 MCG TABLET PO SCH (09:07)
[2018-02-03] MEDS: APIXABAN 5 MG TABLET PO SCH (09:07)
[2018-02-03] MEDS: FERROUS SULFATE 325 MG TABLET PO SCH (09:07)
[2018-02-03] MEDS: METOCLOPRAMIDE 10 MG/10 ML UDCUP PO SCH ×2 (09:07→12:09)
[2018-02-03] MEDS: ISOSORBIDE MONONITRATE 30 MG TABLET PO SCH (09:07)
[2018-02-03] MEDS: FUROSEMIDE 40 MG TABLET PO SCH (09:07)
[2018-02-03] MEDS: PANTOPRAZOLE 40 MG TABLET PO SCH (09:07)
[2018-02-03] MEDS: DOCUSATE SODIUM 100 MG CAPSULE PO SCH (09:08)
[2018-02-03] MEDS: ASPIRIN EC 81 MG TABLET PO SCH (09:08)
[2018-02-03] MEDS: CALCIUM (CARBONATE) 500 MG TABLET PO SCH (09:08)
[2018-02-03] MEDS: POTASSIUM CHLORIDE 10 MEQ TABLET PO SCH (09:08)
[2018-02-03] MEDS: CARBIDOPA/LEVODOPA 25-100 MG TABLET PO SCH ×2 (09:08→15:03)
[2018-02-03 12:12] VITALS: BP 100/57
[2018-02-03] MEDS: SODIUM CHLORIDE 0.9% 1,000 ML IV SCH (15:13)
[2018-02-04] MEDS ORDERED: SERTRALINE 25 MG TABLET PO SCH (09:00)
== END 2018-02-03 15:46 | disposition home or self-care (01) ==
LOC: EDUNIT# → N.EDINP 15:38 → N.ED 15:38 → N.TELEN 19:16
PROVIDERS: ADMIT Family Medicine; ATTEND Family Medicine

== ENCOUNTER 2018-02-14 15:17 | Observation (INO) ==
[2018-02-14 16:58] LABS: Basophils # 0.1 10*3/uL (0.0-0.2); Eosinophils # 0.2 10*3/uL (0.0-0.87); Eosinophils % 2.5 % (0.00-10.9); Hematocrit 35.9 VOL% (35.7-47.0); Hemoglobin 11.9 GM/DL (12.0-16.0); Immature Granulocytes % 0.3 %; Immature Granulocytes Absolute 0.02 #; Lymphocytes # 1.9 10*3/uL (1.4-4.0); Lymphocytes % 25.8 % (21.3-54.2); Mean Corpuscular HGB Conc 33.1 GM/DL (32-36); Mean Corpuscular Hemoglobin 30 PG (27-34); Mean Corpuscular Volume 90.7 FL (87-102); Mean Platelet Volume 10.8 FL (9.6-12.0); Monocytes # 0.5 10*3/uL (0.11-0.8); Monocytes % 6.9 % (1.7-12.7); Neutrophils # 4.6 10*3/uL (1.4-7.4); Neutrophils % 63.5 % (38.7-73.9); Platelet Count 331 T/CUMM (130-400); Red Blood Count 3.96 MC/CUMM (3.8-5.5); Red Cell Distribution Width 14.4 % (9.3-17.3); White Blood Count 7.2 T/CUMM (4-12)
[2018-02-14] MEDS ORDERED: ASPIRIN 325 MG TABLET PO STA (17:11)
[2018-02-14] MEDS ORDERED: ONDANSETRON 4 MG/2 ML VIAL IV STA (17:11)
[2018-02-14] MEDS ORDERED: MORPHINE 4 MG/1 ML VIAL IV STA (17:11)
[2018-02-14] MEDS ORDERED: NITROGLYCERIN 2% OINT 1 INCH/GM PACK TOP STA (17:11)
[2018-02-14] MEDS ORDERED: ALUM/MAG/SIMETH/LIDO VISC 1:1 30 ML BOTTLE PO STA (17:11)
[2018-02-14 17:16] LABS: Albumin 4.1 G/DL (3.4-5.0); Calcium 9.2 MG/DL (8.5-10.1); Total Protein 7.6 G/DL (6.4-8.3)
[2018-02-14 17:26] LABS: Potassium 2.5 MMOL/L (3.5-5.1)
[2018-02-14] MEDS ORDERED: POTASSIUM CHLORIDE 20 MEQ TABLET PO STA (17:33)
[2018-02-14 19:19] LABS: PT Patient Result 11.3 SECS
[2018-02-14] MEDS ORDERED: SODIUM CHLORIDE 0.9% 1,000 ML IV SCH (20:39)
[2018-02-14] MEDS ORDERED: MORPHINE 4 MG/1 ML VIAL IV PRN (20:39)
[2018-02-14] MEDS ORDERED: OXYMETAZOLINE 0.05% NASAL SPRAY 15 ML BOTTLE BOTH NARES PRN (20:39)
[2018-02-14] MEDS ORDERED: ACETAMINOPHEN 325 MG TABLET PO PRN (20:39)
[2018-02-14] MEDS ORDERED: ONDANSETRON 4 MG/2 ML VIAL IV PRN (20:39)
[2018-02-14] MEDS: FERROUS SULFATE 325 MG TABLET PO SCH (22:30)
[2018-02-14] MEDS: CALCIUM (CARBONATE) 500 MG TABLET PO SCH (22:30)
[2018-02-14] MEDS: CARVEDILOL 3.125 MG TABLET PO SCH (22:30)
[2018-02-14] MEDS: POTASSIUM CHLORIDE 10 MEQ TABLET PO SCH (22:30)
[2018-02-14] MEDS: APIXABAN 5 MG TABLET PO SCH (22:30)
[2018-02-14] MEDS: DOCUSATE SODIUM 100 MG CAPSULE PO SCH (22:31)
[2018-02-14] MEDS: METOCLOPRAMIDE 10 MG/10 ML UDCUP PO SCH (22:31)
[2018-02-15 07:53] LABS: Basophils # 0.1 10*3/uL (0.0-0.2); Basophils % 1.1 % (0.0-0.8); Eosinophils # 0.3 10*3/uL (0.0-0.87); Hematocrit 31.9 VOL% (35.7-47.0); Hemoglobin 10.3 GM/DL (12.0-16.0); Immature Granulocytes % 0.3 %; Immature Granulocytes Absolute 0.02 #; Lymphocytes # 1.5 10*3/uL (1.4-4.0); Lymphocytes % 23.5 % (21.3-54.2); Mean Corpuscular HGB Conc 32.3 GM/DL (32-36); Mean Corpuscular Hemoglobin 30 PG (27-34); Mean Corpuscular Volume 92.2 FL (87-102); Monocytes # 0.5 10*3/uL (0.11-0.8); Monocytes % 7.5 % (1.7-12.7); Neutrophils # 4.2 10*3/uL (1.4-7.4); Neutrophils % 63.6 % (38.7-73.9); Platelet Count 272 T/CUMM (130-400); Red Blood Count 3.46 MC/CUMM (3.8-5.5); Red Cell Distribution Width 14.6 % (9.3-17.3); White Blood Count 6.5 T/CUMM (4-12)
[2018-02-15] MEDS: METOCLOPRAMIDE 10 MG/10 ML UDCUP PO SCH ×4 (08:05→20:58)
[2018-02-15 08:34] LABS: Albumin 3.3 G/DL (3.4-5.0); Bilirubin,Total 0.8 MG/DL (0.2-1.0); Osmolality,Calculated 288.7 MOS/KG (273-304); Potassium 3.5 MMOL/L (3.5-5.1); Total Protein 6.3 G/DL (6.4-8.3)
[2018-02-15 08:35] LABS: Risk Ratio 4.23; VLDL CHOLESTEROL 11.8 MG/DL
[2018-02-15] MEDS ORDERED: PANTOPRAZOLE 40 MG TABLET PO SCH (09:00)
[2018-02-15] MEDS: CYANOCOBALAMIN 500 MCG TABLET PO SCH (09:40)
[2018-02-15] MEDS: ALPRAZolam 0.25 MG TABLET PO SCH ×2 (09:40→20:57)
[2018-02-15] MEDS: CALCIUM (CARBONATE) 500 MG TABLET PO SCH ×2 (09:40→20:58)
[2018-02-15] MEDS: ISOSORBIDE MONONITRATE 30 MG TABLET PO SCH (09:40)
[2018-02-15] MEDS: CHOLECALCIFEROL 1,000 UNIT TABLET PO SCH (09:40)
[2018-02-15] MEDS: PANTOPRAZOLE 40 MG TABLET PO SCH (09:41)
[2018-02-15] MEDS: CARVEDILOL 3.125 MG TABLET PO SCH ×2 (09:41→17:02)
[2018-02-15] MEDS: ASPIRIN EC 81 MG TABLET PO SCH (09:41)
[2018-02-15] MEDS: FERROUS SULFATE 325 MG TABLET PO SCH ×2 (09:41→20:57)
[2018-02-15] MEDS: CARBIDOPA/LEVODOPA 25-100 MG TABLET PO SCH ×3 (09:41→17:02)
[2018-02-15] MEDS: DOCUSATE SODIUM 100 MG CAPSULE PO SCH ×2 (09:41→20:57)
[2018-02-15] MEDS: APIXABAN 5 MG TABLET PO SCH ×2 (09:41→20:57)
[2018-02-15] MEDS: POTASSIUM CHLORIDE 10 MEQ TABLET PO SCH ×2 (09:41→20:57)
[2018-02-15] MEDS: FUROSEMIDE 40 MG TABLET PO SCH (09:42)
[2018-02-15] MEDS: RANOLAZINE 500 MG TABLET PO SCH (20:57)
[2018-02-15] MEDS ORDERED: ALPRAZolam 0.25 MG TABLET PO SCH (21:00)
[2018-02-16] MEDS: CARVEDILOL 3.125 MG TABLET PO SCH (08:36)
[2018-02-16] MEDS: CYANOCOBALAMIN 500 MCG TABLET PO SCH (08:36)
[2018-02-16] MEDS: DOCUSATE SODIUM 100 MG CAPSULE PO SCH (08:37)
[2018-02-16] MEDS: CARBIDOPA/LEVODOPA 25-100 MG TABLET PO SCH ×2 (08:38→12:57)
[2018-02-16] MEDS: FERROUS SULFATE 325 MG TABLET PO SCH (08:38)
[2018-02-16] MEDS: PANTOPRAZOLE 40 MG TABLET PO SCH (08:38)
[2018-02-16] MEDS: RANOLAZINE 500 MG TABLET PO SCH (08:38)
[2018-02-16] MEDS: CHOLECALCIFEROL 1,000 UNIT TABLET PO SCH (08:38)
[2018-02-16] MEDS: ASPIRIN EC 81 MG TABLET PO SCH (08:38)
[2018-02-16] MEDS: ISOSORBIDE MONONITRATE 30 MG TABLET PO SCH (08:38)
[2018-02-16] MEDS: CALCIUM (CARBONATE) 500 MG TABLET PO SCH (08:38)
[2018-02-16] MEDS: FUROSEMIDE 40 MG TABLET PO SCH (08:38)
[2018-02-16] MEDS: POTASSIUM CHLORIDE 10 MEQ TABLET PO SCH (08:38)
[2018-02-16] MEDS: ALPRAZolam 0.25 MG TABLET PO SCH (08:38)
[2018-02-16] MEDS: APIXABAN 5 MG TABLET PO SCH (08:38)
[2018-02-16] MEDS: METOCLOPRAMIDE 10 MG/10 ML UDCUP PO SCH ×2 (08:39→12:57)
[2018-02-16] MEDS ORDERED: ALPRAZolam 0.25 MG TABLET PO PRN (09:39)
[2018-02-16 10:46] LABS: Calcium 9.6 MG/DL (8.5-10.1); Osmolality,Calculated 294.7 MOS/KG (273-304); Potassium 3.6 MMOL/L (3.5-5.1)
[2018-02-16 10:56] LABS: T4 (Thyroxine) 7.1 UG/DL (4.7-13.3); Thyroid Stimulating Hormone 0.459 uIU/ml (0.358-3.74)
[2018-02-16 11:30] VITALS: BP 117/68
== END 2018-02-16 14:30 | disposition home or self-care (01) ==
LOC: EDBD → EDUNIT# → N.ED 15:17 → N.EDINP 15:17 → N.TELES 19:39
PROVIDERS: ADMIT Family Medicine; ATTEND Family Medicine

== ENCOUNTER 2018-07-31 10:13 | Observation (INO) ==
[2018-07-31 11:56] LABS: Basophils # 0.1 10*3/uL (0.0-0.2); Basophils % 0.8 % (0.0-0.8); Eosinophils # 0.1 10*3/uL (0.0-0.87); Eosinophils % 0.9 % (0.00-10.9); Hematocrit 38.5 VOL% (35.7-47.0); Hemoglobin 12.3 GM/DL (12.0-16.0); Immature Granulocytes % 0.3 %; Immature Granulocytes Absolute 0.02 #; Lymphocytes # 1.7 10*3/uL (1.4-4.0); Lymphocytes % 22.7 % (21.3-54.2); Mean Corpuscular HGB Conc 31.9 GM/DL (32-36); Mean Corpuscular Volume 93.4 FL (87-102); Mean Platelet Volume 9.9 FL (9.6-12.0); Neutrophils % 68.3 % (38.7-73.9); Platelet Count 332 T/CUMM (130-400); Red Blood Count 4.12 MC/CUMM (3.8-5.5); Red Cell Distribution Width 14.1 % (9.3-17.3); White Blood Count 7.6 T/CUMM (4-12)
[2018-07-31 12:04] LABS: PT Patient Result 10.7 SECS
[2018-07-31 12:52] LABS: Alanine Aminotransferase < 9 U/L (13-56); Albumin 3.8 G/DL (3.4-5.0); Alkaline Phosphatase 88 U/L (45-117); Aspartate Amino Transferase 15 U/L (0-37); Blood Urea Nitrogen 14 MG/DL (7-18); Calcium 8.9 MG/DL (8.5-10.1); Glucose 84 MG/DL (74-106); Total Protein 6.7 G/DL (6.4-8.3)
[2018-07-31] MEDS ORDERED: ACETAMINOPHEN 325 MG TABLET PO PRN (16:28)
[2018-07-31] MEDS ORDERED: ONDANSETRON 4 MG/2 ML VIAL IV PRN (16:28)
[2018-07-31] MEDS: DOCUSATE SODIUM 100 MG CAPSULE PO SCH (21:58)
[2018-08-01 05:37] LABS: Calcium 8.5 MG/DL (8.5-10.1); Osmolality,Calculated 286.8 MOS/KG (273-304)
[2018-08-01] MEDS: PANTOPRAZOLE 40 MG TABLET PO SCH (09:18)
[2018-08-01] MEDS: DOCUSATE SODIUM 100 MG CAPSULE PO SCH ×3 (09:18→20:55)
[2018-08-01] MEDS: CARBIDOPA/LEVODOPA 25-100 MG TABLET PO SCH (16:43)
[2018-08-01] MEDS: METOCLOPRAMIDE 10 MG/10 ML UDCUP PO SCH ×2 (16:43→20:55)
[2018-08-01] MEDS: CALCIUM (CARBONATE) 500 MG TABLET PO SCH (20:54)
[2018-08-01] MEDS: CARVEDILOL 3.125 MG TABLET PO SCH (20:54)
[2018-08-01] MEDS: APIXABAN 5 MG TABLET PO SCH (20:54)
[2018-08-01] MEDS: FERROUS SULFATE 325 MG TABLET PO SCH (20:55)
[2018-08-01] MEDS ORDERED: ASPIRIN EC 81 MG TABLET PO SCH (21:00)
[2018-08-01] MEDS: ALPRAZolam 0.25 MG TABLET PO PRN (23:06)
[2018-08-02 08:02] VITALS: BP 158/79
[2018-08-02] MEDS ORDERED: POTASSIUM CHLORIDE 20 MEQ TABLET PO SCH (09:00)
[2018-08-02] MEDS ORDERED: FUROSEMIDE 40 MG TABLET PO SCH (09:00)
[2018-08-02] MEDS: FERROUS SULFATE 325 MG TABLET PO SCH (09:11)
[2018-08-02] MEDS: CARBIDOPA/LEVODOPA 25-100 MG TABLET PO SCH (09:11)
[2018-08-02] MEDS: METOCLOPRAMIDE 10 MG/10 ML UDCUP PO SCH (09:11)
[2018-08-02] MEDS: ALPRAZolam 0.25 MG TABLET PO PRN (09:12)
[2018-08-02] MEDS: PANTOPRAZOLE 40 MG TABLET PO SCH (09:12)
[2018-08-02] MEDS: CARVEDILOL 3.125 MG TABLET PO SCH (09:12)
[2018-08-02] MEDS: DOCUSATE SODIUM 100 MG CAPSULE PO SCH (09:12)
[2018-08-02] MEDS: APIXABAN 5 MG TABLET PO SCH (09:12)
[2018-08-02] MEDS: CALCIUM (CARBONATE) 500 MG TABLET PO SCH (09:12)
== END 2018-08-02 10:32 | disposition home or self-care (01) ==
LOC: N.ED 10:13 → N.EDINP 10:13 → N.3E 15:38
PROVIDERS: ADMIT Family Medicine; ATTEND Family Medicine

== ENCOUNTER 2019-04-16 08:39 | Observation (INO) ==
[2019-04-16] MEDS ORDERED: ONDANSETRON 4 MG/2 ML VIAL IV PRN ×2 (08:59→10:46)
[2019-04-16] MEDS ORDERED: NITROGLYCERIN 2% OINT 1 INCH/GM PACK TOP STA (08:59)
[2019-04-16] MEDS ORDERED: ASPIRIN 325 MG TABLET PO STA (08:59)
[2019-04-16] MEDS ORDERED: MORPHINE 4 MG/1 ML VIAL IV PRN (08:59)
[2019-04-16 09:11] LABS: Basophils # 0.1 10*3/uL (0.0-0.2); Eosinophils # 0.1 10*3/uL (0.0-0.87); Hematocrit 36.7 VOL% (35.7-47.0); Hemoglobin 11.8 GM/DL (12.0-16.0); Immature Granulocytes % 0.3 %; Immature Granulocytes Absolute 0.02 #; Lymphocytes # 1.2 10*3/uL (1.4-4.0); Lymphocytes % 19.4 % (21.3-54.2); Mean Corpuscular HGB Conc 32.2 GM/DL (32-36); Mean Corpuscular Volume 92.4 FL (87-102); Mean Platelet Volume 10.9 FL (9.6-12.0); Monocytes % 5.5 % (1.7-12.7); Neutrophils % 72.8 % (38.7-73.9); Platelet Count 310 T/CUMM (130-400); Red Blood Count 3.97 MC/CUMM (3.8-5.5); Red Cell Distribution Width 14.4 % (9.3-17.3); White Blood Count 6.2 T/CUMM (4-12)
[2019-04-16 09:17] LABS: Partial Thromboplastin Time 28.4 SECS (20.8-36.0)
[2019-04-16 09:45] LABS: Albumin 3.7 G/DL (3.4-5.0); Bilirubin,Total 1.3 MG/DL (0.2-1.0); Calcium 8.3 MG/DL (8.5-10.1); Osmolality,Calculated 276.5 MOS/KG (273-304); Total Protein 6.6 G/DL (6.4-8.3)
[2019-04-16 09:49] LABS: Barbiturates Screen,Urine Negative (Negative); Benzodiazepines Screen,Urine Negative (Negative); Cannabinoid Screen,Urine Negative (Negative); Opiate Screen,Urine Negative (Negative); Phencyclidine Screen,Urine Negative (Negative)
[2019-04-16] MEDS ORDERED: DEXTROSE 10% 250 ML BAG IV PRN (10:46)
[2019-04-16] MEDS ORDERED: GLUCAGON 1 MG VIAL IM PRN (10:46)
[2019-04-16] MEDS ORDERED: ACETAMINOPHEN 325 MG TABLET PO PRN (10:46)
[2019-04-16] MEDS: INSULIN LISPRO 100 UNIT/ML SUBCUT SCH ×3 (11:35→21:14)
[2019-04-16] MEDS ORDERED: NITROGLYCERIN SL 0.4 MG TABLET SL PRN (11:40)
[2019-04-16] MEDS: SODIUM CHLORIDE 0.9% 1,000 ML IV SCH ×2 (11:40→19:37)
[2019-04-16] MEDS ORDERED: ALPRAZolam 0.5 MG TABLET PO PRN (11:41)
[2019-04-16] MEDS ORDERED: CYCLOBENZAPRINE 10 MG TABLET PO PRN (13:30)
[2019-04-16] MEDS: CARBIDOPA/LEVODOPA 25-100 MG TABLET PO SCH ×2 (15:55→21:10)
[2019-04-16] MEDS ORDERED: ASPIRIN EC 81 MG TABLET PO SCH (21:00)
[2019-04-16] MEDS: carvediloL 6.25 MG TABLET PO SCH (21:09)
[2019-04-16] MEDS: DOCUSATE SODIUM 100 MG CAPSULE PO SCH (21:10)
[2019-04-16] MEDS: APIXABAN 5 MG TABLET PO SCH (21:10)
[2019-04-17] MEDS: SODIUM CHLORIDE 0.9% 1,000 ML IV SCH ×2 (03:21→11:20)
[2019-04-17] MEDS: INSULIN LISPRO 100 UNIT/ML SUBCUT SCH ×2 (08:38→12:13)
[2019-04-17] MEDS: APIXABAN 5 MG TABLET PO SCH (08:40)
[2019-04-17] MEDS: carvediloL 6.25 MG TABLET PO SCH (08:40)
[2019-04-17] MEDS: DOCUSATE SODIUM 100 MG CAPSULE PO SCH (08:40)
[2019-04-17] MEDS: CARBIDOPA/LEVODOPA 25-100 MG TABLET PO SCH ×2 (08:41→14:52)
[2019-04-17] MEDS ORDERED: CYANOCOBALAMIN 500 MCG TABLET PO SCH (09:00)
[2019-04-17] MEDS ORDERED: CHOLECALCIFEROL 1,000 UNIT TABLET PO SCH (09:00)
[2019-04-17] MEDS ORDERED: LOSARTAN 25 MG TABLET PO SCH (09:00)
[2019-04-17] MEDS ORDERED: POTASSIUM CHLORIDE 20 MEQ TABLET PO SCH (09:00)
[2019-04-17] MEDS ORDERED: PANTOPRAZOLE 40 MG TABLET PO SCH (09:00)
[2019-04-17] MEDS ORDERED: FUROSEMIDE 20 MG TABLET PO SCH (09:00)
[2019-04-17 12:00] VITALS: BP 164/70
[2019-04-17] MEDS ORDERED: CARBIDOPA/LEVODOPA 25-100 MG TABLET PO SCH (15:07)
== END 2019-04-17 16:40 | disposition home or self-care (01) ==
LOC: EDBD → EDUNIT# → N.EDINP 08:39 → N.ED 08:39 → N.2W 10:23
PROVIDERS: ADMIT Family Medicine; ATTEND Family Medicine

== ENCOUNTER 2019-05-13 18:14 | Observation (INO) ==
[2019-05-13 18:46] LABS: Basophils # 0.1 10*3/uL (0.0-0.2); Basophils % 0.9 % (0.0-0.8); Eosinophils # 0.1 10*3/uL (0.0-0.87); Eosinophils % 1.2 % (0.00-10.9); Hematocrit 37.5 VOL% (35.7-47.0); Hemoglobin 11.8 GM/DL (12.0-16.0); Immature Granulocytes % 0.2 %; Immature Granulocytes Absolute 0.01 #; Lymphocytes # 1.6 10*3/uL (1.4-4.0); Lymphocytes % 27.3 % (21.3-54.2); Mean Corpuscular HGB Conc 31.5 GM/DL (32-36); Mean Platelet Volume 10.3 FL (9.6-12.0); Monocytes % 7.2 % (1.7-12.7); Neutrophils % 63.2 % (38.7-73.9); Platelet Count 311 T/CUMM (130-400); Red Blood Count 3.99 MC/CUMM (3.8-5.5); Red Cell Distribution Width 14.4 % (9.3-17.3); White Blood Count 5.7 T/CUMM (4-12)
[2019-05-13 18:55] LABS: PT Patient Result 10.7 SECS (9.6-12.2)
[2019-05-13 19:00] LABS: Alanine Aminotransferase < 6 U/L (13-56); Albumin 3.7 G/DL (3.4-5.0); Alkaline Phosphatase 121 U/L (45-117); Aspartate Amino Transferase 12 U/L (0-37); Blood Urea Nitrogen 14 MG/DL (7-18); Calcium 8.9 MG/DL (8.5-10.1); Estimated Glom Filtration Rate 73 ML/MIN; Glucose 118 MG/DL (74-106); Osmolality,Calculated 274.8 MOS/KG (273-304)
[2019-05-13] MEDS ORDERED: ONDANSETRON 4 MG/2 ML VIAL IV ONE (21:16)
[2019-05-13] MEDS ORDERED: MORPHINE 4 MG/1 ML VIAL IV STA (21:16)
[2019-05-13] MEDS ORDERED: FLUTICASONE 50 MCG NASAL SPRAY 16 GM BOTTLE BOTH NARES PRN (22:32)
[2019-05-13] MEDS ORDERED: NITROGLYCERIN SL 0.4 MG TABLET SL PRN (22:32)
[2019-05-13] MEDS: APIXABAN 5 MG TABLET PO SCH (23:26)
[2019-05-13] MEDS: CALCIUM (CARBONATE) 500 MG TABLET PO SCH (23:26)
[2019-05-13] MEDS: ASPIRIN EC 81 MG TABLET PO SCH (23:26)
[2019-05-13] MEDS: carvediloL 6.25 MG TABLET PO SCH (23:26)
[2019-05-14] MEDS: CARBIDOPA/LEVODOPA 25-100 MG TABLET PO SCH ×3 (08:55→20:47)
[2019-05-14] MEDS: POTASSIUM CHLORIDE 20 MEQ TABLET PO SCH (08:55)
[2019-05-14] MEDS: CHOLECALCIFEROL 1,000 UNIT TABLET PO SCH (08:55)
[2019-05-14] MEDS: CALCIUM (CARBONATE) 500 MG TABLET PO SCH ×2 (08:55→20:47)
[2019-05-14] MEDS: LOSARTAN 25 MG TABLET PO SCH (08:55)
[2019-05-14] MEDS: CYANOCOBALAMIN 500 MCG TABLET PO SCH (08:55)
[2019-05-14] MEDS: PANTOPRAZOLE 40 MG TABLET PO SCH (08:55)
[2019-05-14] MEDS: FUROSEMIDE 20 MG TABLET PO SCH (08:56)
[2019-05-14] MEDS: carvediloL 6.25 MG TABLET PO SCH ×2 (08:56→16:40)
[2019-05-14] MEDS: APIXABAN 5 MG TABLET PO SCH ×2 (08:56→20:47)
[2019-05-14] MEDS: SERTRALINE 25 MG TABLET PO SCH (14:42)
[2019-05-14] MEDS: ASPIRIN EC 81 MG TABLET PO SCH (20:47)
[2019-05-15 06:06] LABS: Risk Ratio 3.02; VLDL CHOLESTEROL 13.8 MG/DL
[2019-05-15 07:43] VITALS: BP 148/53
[2019-05-15] MEDS: CALCIUM (CARBONATE) 500 MG TABLET PO SCH (08:10)
[2019-05-15] MEDS: carvediloL 6.25 MG TABLET PO SCH (08:10)
[2019-05-15] MEDS: POTASSIUM CHLORIDE 20 MEQ TABLET PO SCH (08:11)
[2019-05-15] MEDS: APIXABAN 5 MG TABLET PO SCH (08:11)
[2019-05-15] MEDS: CARBIDOPA/LEVODOPA 25-100 MG TABLET PO SCH (08:11)
[2019-05-15] MEDS: FUROSEMIDE 20 MG TABLET PO SCH (08:11)
[2019-05-15] MEDS: CYANOCOBALAMIN 500 MCG TABLET PO SCH (08:12)
[2019-05-15] MEDS: PANTOPRAZOLE 40 MG TABLET PO SCH (08:12)
[2019-05-15] MEDS: SERTRALINE 25 MG TABLET PO SCH (08:12)
[2019-05-15] MEDS: LOSARTAN 25 MG TABLET PO SCH (08:12)
[2019-05-15] MEDS: CHOLECALCIFEROL 1,000 UNIT TABLET PO SCH (08:15)
== END 2019-05-15 10:38 | disposition home or self-care (01) ==
LOC: EDUNIT# → N.ED 18:14 → N.EDINP 18:14 → N.4E 22:31
PROVIDERS: ADMIT Family Medicine; ATTEND Family Medicine